=== PATIENT | male | born 1950 | race Caucasian/White ===

== ENCOUNTER 2020-08-09 14:27 | Emergency (ER) | payer OTHER, MEDICARE, MEDICAID, SELFPAY ==
[2020-08-09 14:29] VITALS: BP 153/76; PULSE 95; RESP 20; TEMP 36.6; O2SAT 98; BMI 34.2
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
[2020-08-09 16:29] VITALS: BP 165/90; PULSE 78; RESP 18; O2SAT 93
[2020-08-09 16:30] VITALS: BP 161/85; PULSE 79; RESP 18; O2SAT 94
[2020-08-09 17:35] VITALS: BP 137/87; PULSE 78; RESP 20; TEMP 36.6; O2SAT 98
== END 2020-08-09 17:36 | disposition home or self-care (01) ==
PROVIDERS: Emergency Provider Emergency Medicine; PCP Family Medicine
DX: S16.1XXA Strain of muscle, fascia and tendon at neck level, initial encounter (principal); S83.91XA Sprain of unspecified site of right knee, initial encounter; V43.52XA Car driver injured in collision with other type car in traffic accident, initial encounter; Y92.488 Other paved roadways as the place of occurrence of the external cause; F17.210 Nicotine dependence, cigarettes, uncomplicated
CPT/HCPCS: 70450; 71045; 72125; 73030; 73562; 99282

== ENCOUNTER 2022-11-28 15:41 | Emergency (ER) | payer MEDICARE, SELFPAY ==
[2022-11-28] VITALS (8 sets, daily range): BP systolic 120–162; BP diastolic 55–75; PULSE 69–78; RESP 16–18; TEMP 36.6; O2SAT 95–96; BMI 34.2
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
--- NOTE | 2022-11-28 15:48 | ECG_ITS ---
APPROVED REPORT Exam: Resting ECG HR:85 bpm ECG Measurements Heart Rate 85 AXES NH 178 P 132 QRSd 193 QRS -58 QT 431 T 98 QTc 473 Conclusion ELECTRONIC ATRIAL PACEMAKER ELECTRONIC VENTRICULAR PACEMAKER ABNORMAL RHYTHM ECG UNCONFIRMED REPORT Electronically signed by : Sandor Finley MD 11/29/2022 10:39:10
--- NOTE | 2022-11-28 15:50 | HMH.EDCP ---
Discharge Plan Disposition Patient Disposition: Home, Self-Care Condition: Fair Chief Complaint: Shortness of Breath/Dyspnea Prescriptions Prescriptions: No Action carvedilol 25 MG tablet 25 mg PO DIRECTED isosorbide mononitrate 30 MG tablet 30 mg PO DAILY clopidogrel 75 MG tablet 75 mg PO DAILY ropinirole 0.25 MG tablet 0.25 mg PO DIRECTED fluoxetine 10 MG capsule 10 mg PO DAILY ibuprofen 600 MG tablet 600 mg PO Q6HP PRN (Reason: Mild Pain) Qty: 30 0RF acetaminophen 500 MG capsule 500 mg PO Q6 Qty: 20 0RF methocarbamol 500 MG tablet 1,000 mg PO TID 10 Days Qty: 60 0RF oxycodone-acetaminophen [Percocet] 1 EACH Tablet 1 tab PO QID Referrals Follow up/Referrals: Gerald Perry [Primary Care Provider] - See instructions Activity Restrictions/Add. Instructions Additional Instructions/Restrictions: Follow-up with your primary care doctor in about 3 to 4 days even if you feel well. Return immediately to the emergency department if you feel worse in any way. Your work-up in the emergency department today did not reveal any life-threatening or dangerous conditions. There is no evidence of heart attack or pneumonia or fluid on your lungs. Clinical Impressions Clinical Impression: Breath shortness Instructions Patient Instructions: DI for Shortness of Breath Discharge ED Provider: Valeriy Garcia [facility] General Chief Complaint: Shortness of Breath/Dyspnea Stated Complaint: SOA Time Seen by Provider: 11/28/22 15:46 Description of Symptoms (Recalled from ER Triage Doc. by RN): The patient presents to the emergency department complaining of chest pain that has been constant since 8 PM last night. He says has been waxing and waning. He has had a pacemaker for 14 years. He also has congestive heart failure. He wears home oxygen at 2 L/min. He denies coughing, fever, nausea, vomiting, diarrhea. HBAVYA Score for Non-Stemi Age of Patient: 70-79 years old Heart Rate: 70-89 bpm Systolic Blood Pressure: 120-139 mmhg Serum Creatinine: 0.80-1.19 mg/dl CHF [place] Class: I-No CHF Other Risk Factors: None Non-Stemi Risk Score: 125 Related Data Home Medications Medication Instructions Recorded Confirmed oxycodone-acetaminophen 10 mg-325 1 tab PO QID back pain 11/09/17 03/06/19 mg tablet (Percocet) carvedilol 25 mg tablet 25 mg PO DIRECTED heart 03/06/19 03/06/19 clopidogrel 75 mg tablet 75 mg PO DAILY heart 03/06/19 03/06/19 fluoxetine 10 mg capsule 10 mg PO DAILY . 03/06/19 03/06/19 isosorbide mononitrate 30 mg 30 mg PO DAILY . 03/06/19 03/06/19 tablet,extended release 24 hr ropinirole 0.25 mg tablet 0.25 mg PO DIRECTED RLS 03/06/19 03/06/19 Previous Rx's Medication Instructions Recorded ibuprofen 600 mg tablet 600 mg PO Q6HP PRN Mild Pain #30 03/06/19 tabs acetaminophen 500 mg capsule 500 mg PO Q6 #20 caps 08/09/20 methocarbamol 500 mg tablet 1,000 mg PO TID 10 days #60 tabs 08/09/20 Allergies Allergy/AdvReac Type Severity Reaction Status Date / Time acetaminophen [From VICODIN] Allergy Unknown RASH AND Verified 02/06/19 19:39 ITCHING hydrocodone [From VICODIN] Allergy Unknown RASH AND Verified 02/06/19 19:39 ITCHING PFSH PFSH Disclaimer: The information contained in this section may have been updated after the patient was seen, as this information can be updated by other users. Social History Smoking Status: Never smoker alcohol intake: never current occupational status: retired Travel in the last 8 weeks: None ROS Obtained: Yes All systems reviewed & no additional complaints except as documented Physical Exam General General appearance: alert and in no apparent distress Head Head exam: atraumatic Eye Eye exam: Present normal appearance ENT ENT exam: Present normal exam Neck Neck exam: Present normal inspection and full ROM; Absent tenderness or meningismus Chest Chest inspection:
[2022-11-28 16:04] LABS: Basophils % 0.5 % (0.1-2.0); Eosinophils # 0.5 K/mm3 (0.0-0.4); Eosinophils % 5.6 % (0.1-12.0); Hematocrit 45.3 % (42.0-52.0); Hemoglobin 14.4 g/dL (14.1-18.0); Lymphocytes # 1.8 K/mm3 (0.7-4.5); Lymphocytes % 20.3 % (10-50); Mean Corpuscular HGB Conc 31.8 g/dL (31.8-35.4); Mean Corpuscular Hemoglobin 27.6 pg (27.0-31.2); Mean Corpuscular Volume 86.7 fl (80-94); Mean Platelet Volume 9.9 fl (7.4-10.4); Monocytes # 0.6 K/mm3 (0.1-1.0); Monocytes % 6.9 % (1.7-9.3); Neutrophils # 5.8 K/mm3 (1.8-7.8); Neutrophils % 66.7 % (37.0-80.0); Platelet Count 180 K/mm3 (142-424); Red Blood Count 5.22 M/mm3 (4.60-6.20); Red Cell Distribution Width 15.1 % (11.5-17.5); White Blood Count 8.7 K/mm3 (4.8-10.8)
[2022-11-28 16:10] LABS: Chloride 100 mmol/L (98-107); Sodium 142 mmol/L (136-145)
[2022-11-28 16:11] LABS: Potassium 4.6 mmoL/L (3.5-5.1)
[2022-11-28 16:13] LABS: Alanine Aminotransferase 35 U/L (12-78); Albumin Level 4.3 g/dl (3.5-5.0); Albumin/Globulin Ratio 1.4 (1.1-1.8); Alkaline Phosphatase 99 U/L (38-126); Anion Gap 14.6 mEq/L (5-15); Aspartate Amino Transferase 34 U/L (17-59); Bilirubin,Total 0.3 mg/dl (0.2-1.3); Blood Urea Nitrogen 22 mg/dl (9-20); Carbon Dioxide 32 mmol/L (22.0-30.0); Creatinine Clearance Estimated 96 mL/min (50-200); Estimated Glomerular Filt Rate 95 ml/min (>60); GFR (African American) 115 ML/MIN (>60); Globulin 3.1 g/dL (1.3-3.2); Total Protein,Serum 7.4 g/dl (6.3-8.2)
[2022-11-28 16:14] LABS: Calcium 9.4 mg/dl (8.4-10.2); Glucose 156 mg/dl (74-100)
[2022-11-28 16:23] LABS: NT Pro Brain Natriuretic Pep. 95.9 pg/mL (0-125)
[2022-11-28 16:26] LABS: Troponin I 0.02 ng/ml (0.00-0.034)
--- NOTE | 2022-11-28 17:43 | PC.NURSE ---
rounded on pt gave a zero sugar starry night soda, tap shields at bedside
--- NOTE | 2022-11-28 18:33 | PC.NURSE ---
checked on pt gave tv remote nothing else needed
--- NOTE | 2022-11-28 18:40 | PC.NURSE ---
jose rafael king at
== END 2022-11-28 19:06 | disposition home or self-care (01) ==
PROVIDERS: Emergency Provider Emergency Medicine; PCP Family Medicine
DX: R07.9 Chest pain, unspecified (principal); R06.02 Shortness of breath; I50.9 Heart failure, unspecified; Z95.0 Presence of cardiac pacemaker
CPT/HCPCS: 71045; 80053; 83880; 84484; 85025; 93005; 99285

== ENCOUNTER 2022-12-07 14:14 | Observation (INO) | payer MEDICARE, SELFPAY ==
[2022-12-07] VITALS (8 sets, daily range): BP systolic 108–152; BP diastolic 59–76; PULSE 70–103; RESP 18–20; TEMP 37.2–37.6; O2SAT 90–95; BMI 34.9; BMI 35.9
--- NOTE | 2022-12-07 14:36 | XR_ITS ---
PROCEDURE INFORMATION: Exam: XR Left Elbow Exam date and time: 12/07/2022 2:40 PM Age: 72 years old Clinical indication: Swelling; Elbow; Left; Additional info: Elbow pain, swelling TECHNIQUE: Imaging protocol: Radiologic exam of the left elbow. Views: 3 or more views. COMPARISON: CR ELBL3 ELBOW-LT-3 VIEWS 12/22/2016 10:28 PM FINDINGS: Bones/joints: No acute fracture or dislocation. Considerable hypertrophic osteophytes at the elbow joint. Chronic irregularity of the dorsal cortex of the proximal ulna. Soft tissues: Posterior elbow soft tissue swelling. Calcification seen in the approximate location of the triceps tendon. IMPRESSION: Posterior elbow soft tissue swelling.
--- NOTE | 2022-12-07 14:37 | HMH.EDGENADL ---
Discharge Plan Disposition Patient Disposition: Admitted Condition: Fair Prescriptions Prescriptions: No Action carvedilol 25 MG tablet 25 mg PO DIRECTED isosorbide mononitrate 30 MG tablet 30 mg PO DAILY clopidogrel 75 MG tablet 75 mg PO DAILY ropinirole 0.25 MG tablet 0.25 mg PO DIRECTED fluoxetine 10 MG capsule 10 mg PO DAILY ibuprofen 600 MG tablet 600 mg PO Q6HP PRN (Reason: Mild Pain) Qty: 30 0RF acetaminophen 500 MG capsule 500 mg PO Q6 Qty: 20 0RF methocarbamol 500 MG tablet 1,000 mg PO TID 10 Days Qty: 60 0RF oxycodone-acetaminophen [Percocet] 1 EACH Tablet 1 tab PO QID Referrals Follow up/Referrals: Gerald Perry [Primary Care Provider] - See instructions Clinical Impressions Clinical Impression: Lymphangitis of upper extremity, Pain and swelling of left elbow Discharge ED Provider: Sarah Patel Adult HPI General Chief complaint: Extremity Problem,Nontraumatic Stated complaint: left elbow, knot Time Seen by Provider: 12/07/22 14:16 Mode of Arrival: Ambulatory Source of Information: Patient Limitations: No Limitations Description of Symptoms (Recalled from ER Triage Doc. by RN): Presents to ED with complaints of left elbow pain that started this morning. Further reports reddness,swelling, heat that radiates up from elbow into inner arm. Denies fever [employer]. Also denies hx of gout. Hx. of surgery to left elbow unable to recall x4-5 years ago. History of Present Illness HPI narrative: 72-year-old male presenting to the emergency department with pain, swelling, redness of his left elbow. Symptoms started yesterday. Started with swelling and pain near his elbow. When he woke up this morning there was redness and warmth. Seems to be tracking up the inner portion of his arm. He denies any fevers, chills, nausea, vomiting. No numbness, weakness, tingling in his left hand. No medications prior to arrival. He had surgery on his elbow 4 to 5 years ago. Denies recent falls, trauma Related Data Home Medications Medication Instructions Recorded Confirmed oxycodone-acetaminophen 10 mg-325 1 tab PO QID back pain 11/09/17 03/06/19 mg tablet (Percocet) carvedilol 25 mg tablet 25 mg PO DIRECTED heart 03/06/19 03/06/19 clopidogrel 75 mg tablet 75 mg PO DAILY heart 03/06/19 03/06/19 fluoxetine 10 mg capsule 10 mg PO DAILY . 03/06/19 03/06/19 isosorbide mononitrate 30 mg 30 mg PO DAILY . 03/06/19 03/06/19 tablet,extended release 24 hr ropinirole 0.25 mg tablet 0.25 mg PO DIRECTED RLS 03/06/19 03/06/19 Previous Rx's Medication Instructions Recorded ibuprofen 600 mg tablet 600 mg PO Q6HP PRN Mild Pain #30 03/06/19 tabs acetaminophen 500 mg capsule 500 mg PO Q6 #20 caps 08/09/20 methocarbamol 500 mg tablet 1,000 mg PO TID 10 days #60 tabs 08/09/20 Allergies Allergy/AdvReac Type Severity Reaction Status Date / Time acetaminophen [From VICODIN] Allergy Unknown RASH AND Verified 02/06/19 19:39 ITCHING hydrocodone [From VICODIN] Allergy Unknown RASH AND Verified 02/06/19 19:39 ITCHING PFSH [facility] Disclaimer: The information contained in this section may have been updated after the patient was seen, as this information can be updated by other users. Social History Smoking Status: Current every day smoker tobacco type: cigarettes packs per day: 1 alcohol intake: never current occupational status: retired Travel in the last 8 weeks: None ROS Obtained: Yes All systems reviewed & no additional complaints except as documented Constitutional Constitutional: Denies chills, Denies fever(s) and Denies headache(s) ENT Ears, Nose, Mouth, and Throat: Denies dizziness and Denies headache(s) Cardiovascular Cardiovascular: Denies dyspnea Respiratory Respiratory: Denies cough and Denies dyspnea Gastrointestinal Gastrointestingal: Denies nausea or vomiting Musculoskeletal Musculoskeletal: Reports arthralgias (l
--- NOTE | 2022-12-07 14:50 | PC.NURSE ---
Rad XR @ [facility]
[2022-12-07 14:55] LABS: Basophils % 0.3 % (0.1-2.0); Eosinophils # 0.3 K/mm3 (0.0-0.4); Eosinophils % 2.5 % (0.1-12.0); Hematocrit 45.4 % (42.0-52.0); Hemoglobin 14.6 g/dL (14.1-18.0); Lymphocytes % 9.3 % (10-50); Mean Corpuscular HGB Conc 32.2 g/dL (31.8-35.4); Mean Corpuscular Hemoglobin 27.6 pg (27.0-31.2); Mean Corpuscular Volume 85.8 fl (80-94); Mean Platelet Volume 10.1 fl (7.4-10.4); Monocytes # 0.8 K/mm3 (0.1-1.0); Monocytes % 7.4 % (1.7-9.3); Neutrophils # 8.9 K/mm3 (1.8-7.8); Neutrophils % 80.5 % (37.0-80.0); Platelet Count 185 K/mm3 (142-424); Red Blood Count 5.29 M/mm3 (4.60-6.20); Red Cell Distribution Width 15.2 % (11.5-17.5)
[2022-12-07 14:58] LABS: Chloride 96 mmol/L (98-107); Potassium 3.8 mmoL/L (3.5-5.1); Sodium 136 mmol/L (136-145)
[2022-12-07 15:01] LABS: Blood Urea Nitrogen 16 mg/dl (9-20); Creatinine Clearance Estimated 99 mL/min (50-200); Estimated Glomerular Filt Rate 73 ml/min (>60); GFR (African American) 89 ML/MIN (>60)
[2022-12-07 15:02] LABS: Anion Gap 14.8 mEq/L (5-15); Calcium 8.8 mg/dl (8.4-10.2); Carbon Dioxide 29 mmol/L (22.0-30.0); Glucose 217 mg/dl (74-100)
[2022-12-07 15:07] LABS: C-Reactive Protein 146.8 mg/L (0-4)
[2022-12-07 15:25] LABS: Erythrocyte Sedimentation Rate 34 mm/hr (0-20)
--- NOTE | 2022-12-07 15:37 | PC.NURSE ---
Dr Jaun woodard
--- NOTE | 2022-12-07 15:38 | PC.NURSE ---
Dr Patel speaking with Dr Zamorano
--- NOTE | 2022-12-07 15:42 | PC.NURSE ---
ER spoke with hospitalist dr. pelaez-states dr. pelaez requested a ct prior to admission to r/o necrotizing fascitis. ER MD states placing CT order.
--- NOTE | 2022-12-07 15:42 | CT_ITS ---
PROCEDURE INFORMATION: Exam: CT Left Upper Extremity Without Contrast, Elbow Exam date and time: 12/07/2022 4:00 PM Age: 72 years old Clinical indication: Pain; Patient HX: Left elbow infection. Doctor attempted to drain elbow. ; Additional info: Elbow pain, swelling TECHNIQUE: Imaging protocol: Computed tomography of the left upper extremity without contrast. Exam focused on the elbow. 3D rendering (Not supervised by radiologist): MIP and/or 3D reconstructed images were created by the technologist. Radiation optimization: All CT scans at this facility use at least one of these dose optimization techniques: automated exposure control; mA and/or kV adjustment per patient size (includes targeted exams where dose is matched to clinical indication); or iterative reconstruction. REPORTING DATA: Count of CT and Cardiac NM exams in prior 12 months: This patient has received 0 known CTs and 0 known cardiac nuclear medicine studies in the 12 months prior to the current study. COMPARISON: CR XR ELBOW LT MIN 3V 12/07/2022 2:40 PM FINDINGS: Bones/joints: No acute fracture or dislocation. Large hypertrophic osteophytes are seen at the elbow joint. Soft tissues: Considerable soft tissue swelling posterior to the elbow joint. No obvious fluid collection. IMPRESSION: Posterior elbow soft tissue swelling. No obvious fluid collection. However this study is limited without the use of IV contrast.
--- NOTE | 2022-12-07 16:07 | PC.NURSE ---
Rounded on patient; updated on plan of care.
--- NOTE | 2022-12-07 16:07 | EXP.HP ---
History of Present Illness *Admission Date: 12/07/22 *Reason for visit:: Right elbow pain *History of present illness: Patient with past medical history of pacemaker, artificial valve replacement, diabetes, hypertension presents complaining of 2 days left elbow pain. Patient states pain began 2 days ago upon awakening. Describes pain as 10/10, sharp, focused in elbow, lasting seconds, worse with movement and touching of elbow, better when elbow left alone. Patient also complains of constant achiness in left elbow for 48 hours. States that elbow discomfort radiates to left shoulder. Denies fevers, chills, recent injuries, recent accidents. Patient unsure whether he is on anticoagulation at home. States he thinks he has a pig artificial heart valve. Also admits to previous left elbow surgery. Smokes 1 pack/day and requests nicotine patch during hospitalization. Patient states he is also unsure of home medications, and currently calling relatives to obtain home med list. [facility] Disclaimer: The information contained in this section may have been updated after the patient was seen, as this information can be updated by other users. Past medical history CAD with stents Lung cancer diagnosed 2 years ago without follow-up Hyperlipidemia Hypertension Kxa-rklfwzh-habqkieex diabetes on metformin Past surgical history Pacemaker implantation Artificial heart valve Left elbow surgery Past social history , 2 months ago Lives alone Smokes 1 pack/day Denies alcohol and illegal drugs Past family history Mother from aneurysm issues Father had hyperlipidemia and diabetes Social History Smoking Status: Current every day smoker tobacco type: cigarettes packs per day: 1 alcohol intake: never current occupational status: retired Travel in the last 8 weeks: None Review of Systems Review of Systems Review of systems:: pertinent systems reviewed and negative unless documented below Constitutional Constitutional: Denies headache(s) ENT Ears, Nose, Mouth, and Throat: Denies dizziness and Denies headache(s) *Neurologic Neurologic: Denies dizziness and Denies headache(s) Meds Home Medications and Allergies Home Medications Medication Instructions Recorded Confirmed Type oxycodone-acetaminophen 10 mg-325 1 tab PO QID back pain 11/09/17 03/06/19 History mg tablet (Percocet) carvedilol 25 mg tablet 25 mg PO DIRECTED heart 03/06/19 03/06/19 History clopidogrel 75 mg tablet 75 mg PO DAILY heart 03/06/19 03/06/19 History fluoxetine 10 mg capsule 10 mg PO DAILY . 03/06/19 03/06/19 History ibuprofen 600 mg tablet 600 mg PO Q6HP PRN Mild Pain #30 03/06/19 Rx tabs isosorbide mononitrate 30 mg 30 mg PO DAILY . 03/06/19 03/06/19 History tablet,extended release 24 hr ropinirole 0.25 mg tablet 0.25 mg PO DIRECTED RLS 03/06/19 03/06/19 History acetaminophen 500 mg capsule 500 mg PO Q6 #20 caps 08/09/20 Rx methocarbamol 500 mg tablet 1,000 mg PO TID 10 days #60 tabs 08/09/20 Rx New Prescriptions to Start Prescriptions: Allergies Allergy/AdvReac Type Severity Reaction Status Date / Time acetaminophen [From VICODIN] Allergy Unknown RASH AND Verified 02/06/19 19:39 ITCHING hydrocodone [From VICODIN] Allergy Unknown RASH AND Verified 02/06/19 19:39 ITCHING Exam Data for Last 24 hours Vital signs and Labs for Last 24 Hours: Temp Pulse Resp BP Pulse Ox 98.9 F 97 H 18 123/71 95 12/07/22 14:15 12/07/22 14:30 12/07/22 14:30 12/07/22 14:30 12/07/22 14:30 Laboratory Results - last 24 hr 12/07/22 14:47: WBC 11.0 H, RBC 5.29, Hgb 14.6, Hct 45.4, MCV 85.8, MCH 27.6, MCHC 32.2, RDW 15.2, Plt Count 185, MPV 10.1, Neut % (Auto) 80.5 H, Lymph % (Auto) 9.3 L, [place] % (Auto) 7.4, Eos % (Auto) 2.5, Baso % (Auto) 0.3, Neut # (Auto) 8.9 H, Lymph # (Auto) 1.0, [place] # (Auto) 0.8, Eos # (Auto) 0.3, Baso # (Auto) 0.0, ESR 34 H 12/07/22
[2022-12-07 16:11] LABS: Coronavirus 19, PCR Not Detected (NotDetected); Influenza A, PCR Not Detected (NotDetected); Influenza B, PCR Not Detected (NotDetected)
--- NOTE | 2022-12-07 16:16 | PC.NURSE ---
Dr Hope (hospitalist) at [facility]
--- NOTE | 2022-12-07 16:21 | PC.NURSE ---
[facility] notified of admission
--- NOTE | 2022-12-07 16:34 | CT_ITS ---
PROCEDURE INFORMATION: Exam: CT Chest With Contrast; Diagnostic Exam date and time: 12/07/2022 4:51 PM Age: 72 years old Clinical indication: Other: Previous lung cancer diagnosis; Additional info: Diagnosed with lung cancer 2 years ago w/o f/u TECHNIQUE: Imaging protocol: Diagnostic computed tomography of the chest with contrast. Radiation optimization: All CT scans at this facility use at least one of these dose optimization techniques: automated exposure control; mA and/or kV adjustment per patient size (includes targeted exams where dose is matched to clinical indication); or iterative reconstruction. Contrast material: ISOVUE; Contrast volume: 75 ml; Contrast route: IV; REPORTING DATA: Count of CT and Cardiac NM exams in prior 12 months: This patient has received 0 known CTs and 0 known cardiac nuclear medicine studies in the 12 months prior to the current study. COMPARISON: CR XR CHEST PORTABLE 11/28/2022 4:00 PM FINDINGS: Tubes, catheters and devices: Dual chamber transvenous pacemaker in place. Lungs: Unremarkable. No consolidation. No masses. Pleural spaces: Unremarkable. No pneumothorax. No pleural effusion. Heart: Aortic valve replacement. Coronary arteries: Moderate coronary artery calcification. Lymph nodes: Unremarkable. No enlarged lymph nodes. Vasculature: Mild atherosclerotic changes are seen within the thoracic aorta without evidence of aneurysm. Bones/joints: Unremarkable. No acute fracture. Soft tissues: 2.5 cm sebaceous cyst in the lower back, right of midline. IMPRESSION: No acute findings.
--- NOTE | 2022-12-07 16:52 | PC.NURSE ---
Report called to Amy WOMACK
[2022-12-07 17:06] LABS: INR 1.03 (0.9-1.1); Prothrombin Time 11.1 seconds (10.1-12.5)
[2022-12-07 17:20] LABS: PTT Heparin (inpatient only) 30.7 Seconds (23.6-34.0)
[2022-12-07 20:34] LABS: POC Glucose,Bedside 262 (70-110)
[2022-12-08 04:00] VITALS: BP 145/64; PULSE 80; RESP 18; TEMP 36.7; O2SAT 90; BMI 21.1
[2022-12-08 06:17] LABS: POC Glucose,Bedside 168 (70-110)
[2022-12-08 06:21] LABS: Basophils % 0.4 % (0.1-2.0); Eosinophils # 0.4 K/mm3 (0.0-0.4); Hematocrit 40.9 % (42.0-52.0); Hemoglobin 13.4 g/dL (14.1-18.0); Lymphocytes # 1.4 K/mm3 (0.7-4.5); Lymphocytes % 14.9 % (10-50); Mean Corpuscular HGB Conc 32.8 g/dL (31.8-35.4); Mean Corpuscular Hemoglobin 27.8 pg (27.0-31.2); Mean Corpuscular Volume 84.7 fl (80-94); Mean Platelet Volume 9.9 fl (7.4-10.4); Monocytes # 0.8 K/mm3 (0.1-1.0); Monocytes % 9.1 % (1.7-9.3); Neutrophils # 6.6 K/mm3 (1.8-7.8); Neutrophils % 71.6 % (37.0-80.0); Platelet Count 142 K/mm3 (142-424); Red Blood Count 4.83 M/mm3 (4.60-6.20); Red Cell Distribution Width 15.3 % (11.5-17.5); White Blood Count 9.2 K/mm3 (4.8-10.8)
--- NOTE | 2022-12-08 06:23 | PC.NURSE ---
Patient rested most of the night. Patient did complain of restless leg so patient is refusing SCUDs at the moment. RN reached out to RN SURGICAL and restarted a home medication see AUG. No other complains were stated. Patient has been NPO since midnight for ortho consult
[2022-12-08 06:25] LABS: Chloride 100 mmol/L (98-107); Sodium 139 mmol/L (136-145)
[2022-12-08 06:26] LABS: Potassium 4.1 mmoL/L (3.5-5.1)
[2022-12-08 06:29] LABS: Anion Gap 14.1 mEq/L (5-15); Blood Urea Nitrogen 16 mg/dl (9-20); Calcium 8.3 mg/dl (8.4-10.2); Carbon Dioxide 29 mmol/L (22.0-30.0); Creatinine Clearance Estimated 60 mL/min (50-200); Estimated Glomerular Filt Rate 95 ml/min (>60); GFR (African American) 115 ML/MIN (>60); Glucose 168 mg/dl (74-100); Lactic Acid 0.7 mmol/L (0.7-2.1)
[2022-12-08 06:31] LABS: INR 1.04 (0.9-1.1); Prothrombin Time 11.2 seconds (10.1-12.5)
[2022-12-08 06:34] LABS: C-Reactive Protein 166.6 mg/L (0-4)
[2022-12-08 06:57] LABS: PTT Heparin (inpatient only) 30.2 Seconds (23.6-34.0)
--- NOTE | 2022-12-08 07:38 | EXP.PHA.CONS ---
Pharmacy Consult Date: 12/08/22 Time: 07:38 Referring provider: DR. GONZÁLES Reason for Consult:: VANCOMYCIN DOSING FOR CELLULITIS Allergies Allergy/AdvReac Type Severity Reaction Status Date / Time hydrocodone [From VICODIN] Allergy Unknown RASH AND Verified 02/06/19 19:39 ITCHING Home Medications Medication Instructions Recorded Confirmed Type oxycodone-acetaminophen 10 mg-325 1 tab PO QID back pain 11/09/17 12/07/22 History mg tablet (Percocet) carvedilol 25 mg tablet 25 mg PO DAILY heart 03/06/19 12/07/22 History clopidogrel 75 mg tablet 75 mg PO DAILY heart 03/06/19 12/07/22 History fluoxetine 10 mg capsule 10 mg PO DAILY Anxiety 03/06/19 12/07/22 History ibuprofen 600 mg tablet 600 mg PO Q6HP PRN Mild Pain #30 03/06/19 12/07/22 Rx tabs isosorbide mononitrate 30 mg 30 mg PO DAILY hypertension 03/06/19 12/07/22 History tablet,extended release 24 hr ropinirole 0.25 mg tablet 0.25 mg PO HS RLS 03/06/19 12/07/22 History acetaminophen 500 mg capsule 500 mg PO Q6 Pain 12/07/22 12/07/22 History albuterol sulfate 90 mcg/actuation 90 mcg inhalation NEEDED PRN 12/07/22 12/07/22 History aerosol inhaler Asthma amitriptyline 25 mg tablet 25 mg PO DAILY Anxiety 12/07/22 12/07/22 History amlodipine 5 mg tablet 5 mg PO DAILY Hypertension 12/07/22 12/07/22 History diclofenac sodium 1 % topical gel 4 g topical QID pain 12/07/22 12/07/22 History hydrochlorothiazide 25 mg tablet 25 mg PO DAILY Heart failure 12/07/22 12/07/22 History lisinopril 40 mg tablet 40 mg PO DAILY Hypertension 12/07/22 12/07/22 History metformin 500 mg tablet,extended 2,000 mg PO DAILY daily 12/07/22 12/07/22 History release 24 hr methocarbamol 500 mg tablet 1,000 mg PO BID Restless leg 12/07/22 12/07/22 History mirtazapine 15 mg tablet 15 mg PO HS Anxiety 12/07/22 12/07/22 History nebulizer accessories 12/07/22 12/07/22 History pantoprazole 40 mg tablet,delayed 40 mg PO DAILY Acid reflux 12/07/22 12/07/22 History release pramipexole 1 mg tablet 4 mg PO HS Restless leg 12/07/22 12/07/22 History rosuvastatin 40 mg tablet 40 mg PO DAILY Cholesterol 12/07/22 12/07/22 History tamsulosin 0.4 mg capsule 0.4 mg PO DAILY Supplement 12/07/22 12/07/22 History tiotropium bromide 2.5 2.5 mcg inhalation DAILY COPD 12/07/22 12/07/22 History mcg/actuation mist for inhalation (Spiriva Respimat) New Prescriptions to Start Prescriptions: Height: 1.73 m Weight: 63.163 kg Laboratory Results:: Laboratory Results - last 24 hr 12/07/22 14:47: WBC 11.0 H, RBC 5.29, Hgb 14.6, Hct 45.4, MCV 85.8, MCH 27.6, MCHC 32.2, RDW 15.2, Plt Count 185, MPV 10.1, Neut % (Auto) 80.5 H, Lymph % (Auto) 9.3 L, [place] % (Auto) 7.4, Eos % (Auto) 2.5, Baso % (Auto) 0.3, Neut # (Auto) 8.9 H, Lymph # (Auto) 1.0, [place] # (Auto) 0.8, Eos # (Auto) 0.3, Baso # (Auto) 0.0, ESR 34 H 12/07/22 14:47: Sodium 136, Potassium 3.8, Chloride 96 L, Carbon Dioxide 29, Anion Gap 14.8, BUN 16, Creatinine 1.00, Estimated Creat Clear 99, Estimated GFR 73, Est GFR ( Amer) 89, Glucose 217 H, Calcium 8.8, C-Reactive Protein 146.8 H 12/07/22 14:47: PT 11.1, INR 1.03 12/07/22 14:47: APTT 30.7 12/07/22 15:44: SARS-CoV-2 (PCR) Not detected, Influenza A Untype (PCR) Not detected, Influenza Type B (PCR) Not detected 12/07/22 20:14: POC Glucose 262 H 12/08/22 05:49: POC Glucose 168 H 12/08/22 06:10: WBC 9.2, RBC 4.83, Hgb 13.4 L, Hct 40.9 L, MCV 84.7, MCH 27.8, MCHC 32.8, RDW 15.3, Plt Count 142, MPV 9.9, Neut % (Auto) 71.6, Lymph % (Auto) 14.9, [place] % (Auto) 9.1, Eos % (Auto) 4.0, Baso % (Auto) 0.4, Neut # (Auto) 6.6, Lymph # (Auto) 1.4, [place] # (Auto) 0.8, Eos # (Auto) 0.4, Baso # (Auto) 0.0 12/08/22 06:10: PT 11.2, INR 1.04 12/08/22 06:10: Sodium 139, Potassium 4.1, Chloride 100, Carbon Dioxide 29, Anion Gap 14.1, BUN 16, Creatinine 0.80, Estimated Creat Clear 60, Estimated GFR 95, Est GFR ( Amer) 115 D, Glucose 168 H D, Calcium 8.3 L, Magnesium 2.0, C-Reactive Protein 166.6 H 12/08/22 06:10: Lactate 0.
[2022-12-08 07:52] LABS: Erythrocyte Sedimentation Rate 30 mm/hr (0-20)
[2022-12-08 08:00] VITALS: BP 120/49; PULSE 70; RESP 18; TEMP 36.8; O2SAT 92
--- NOTE | 2022-12-08 08:01 | HMH.PHAINT1 ---
Pharmacy Intervention Comments: MEDICATION RECONCILIATION COMPLETED ON PATIENT USING EXTERNAL FILL HISTORY FROM PHARMACY. -JIN OZUNA, SNEHAD
--- NOTE | 2022-12-08 09:45 | EXP.ORTH.CON ---
History of Present Illness *Admission Date: 12/07/22 *History of present illness: Patient with past medical history of pacemaker, artificial valve replacement, diabetes, hypertension presents complaining of 2 days left elbow pain. Patient states pain began 2 days ago upon awakening. Describes pain as 10/10, sharp, focused in elbow, lasting seconds, worse with movement and touching of elbow, better when elbow left alone. Patient also complains of constant achiness in left elbow for 48 hours. States that elbow discomfort radiates to left shoulder. Denies fevers, chills, recent injuries, recent accidents. Patient unsure whether he is on anticoagulation at home. States he thinks he has a pig artificial heart valve. Also admits to previous left elbow surgery. Smokes 1 pack/day and requests nicotine patch during hospitalization. Patient states he is also unsure of home medications, and currently calling relatives to obtain home med list. Orthopedic consulted from the emergency department in regards to recommendations and treatment options with left elbow [facility] Disclaimer: The information contained in this section may have been updated after the patient was seen, as this information can be updated by other users. Medical History (Updated 12/08/22 @ 09:48 by John Zamorano DO) Atrial fibrillation Congestive heart failure COPD (chronic obstructive pulmonary disease) Hypertension Social History (Updated 12/07/22 @ 18:52 by Carolina Forte RN) Smoking Status: Current every day smoker tobacco type: cigarettes packs per day: 1 alcohol intake: never current occupational status: retired Travel in the last 8 weeks: None Review of Systems Constitutional Constitutional: Denies headache(s) ENT Ears, Nose, Mouth, and Throat: Denies dizziness and Denies headache(s) *Neurologic Neurologic: Denies dizziness and Denies headache(s) Meds Home Medications and Allergies Home Medications Medication Instructions Recorded Confirmed Type oxycodone-acetaminophen 10 mg-325 1 tab PO TIDP PRN Moderate Pain 11/09/17 12/08/22 History mg tablet (Percocet) (Scale Score 5-6) carvedilol 25 mg tablet 25 mg PO BID Hypertension 03/06/19 12/08/22 History clopidogrel 75 mg tablet 75 mg PO DAILY PLATELET INHIBITOR 03/06/19 12/07/22 History fluoxetine 10 mg capsule 10 mg PO DAILY MOOD 03/06/19 12/07/22 History ibuprofen 600 mg tablet 600 mg PO Q6HP PRN Mild Pain #30 03/06/19 12/07/22 Rx tabs isosorbide mononitrate 30 mg 30 mg PO DAILY hypertension 03/06/19 12/07/22 History tablet,extended release 24 hr acetaminophen 500 mg capsule 500 mg PO Q6HP PRN Mild Pain 12/07/22 12/08/22 History (Scale Score 1-4) albuterol sulfate 90 mcg/actuation 2 puff inhalation Q4HP PRN 12/07/22 12/08/22 History aerosol inhaler Shortness Of Breath amitriptyline 25 mg tablet 25 mg PO DAILY MOOD 12/07/22 12/07/22 History amlodipine 5 mg tablet 5 mg PO DAILY Hypertension 12/07/22 12/07/22 History diclofenac sodium 1 % topical gel 1 ea topical QID pain 12/07/22 12/08/22 History hydrochlorothiazide 25 mg tablet 25 mg PO DAILY Fluid 12/07/22 12/07/22 History lisinopril 40 mg tablet 40 mg PO DAILY Hypertension 12/07/22 12/07/22 History metformin 500 mg tablet,extended 2,000 mg PO DAILY Diabetes 12/07/22 12/07/22 History release 24 hr methocarbamol 500 mg tablet 1,000 mg PO BID Restless leg 12/07/22 12/07/22 History mirtazapine 15 mg tablet 15 mg PO HS Anxiety 12/07/22 12/07/22 History nebulizer accessories 12/07/22 12/07/22 History pantoprazole 40 mg tablet,delayed 40 mg PO DAILY Acid reflux 12/07/22 12/07/22 History release pramipexole 1 mg tablet 1 mg PO HS Restless leg 12/07/22 12/08/22 History rosuvastatin 40 mg tablet 40 mg PO HS Cholesterol 12/07/22 12/08/22 History tamsulosin 0.4 mg capsule 0.4 mg PO DAILY PROSTATE 12/07/22 12/07/22 History tiotropium bromide 2.5 2.5 mcg inhalation DAILY COPD 12/07/22 12/07/22 History mcg/actuation mist for inhalation
--- NOTE | 2022-12-08 11:29 | PC.NURSE ---
COURTESY ROUND PATIENT AWAKE LAYING BED . PATIENT HAS NO REQUEST OR NEEDS AT THIS TIME. TRASH AND LINENS EMPTIED . PATIENT REFUSED ICE WATER AT THIS TIME. CALL LIGHT WITHIN REACH .
[2022-12-08 12:23] LABS: POC Glucose,Bedside 270 (70-110)
[2022-12-08 16:00] VITALS: BP 142/80; PULSE 72; RESP 22; TEMP 36.8; O2SAT 93
--- NOTE | 2022-12-08 16:10 | EXP.PN ---
Subjective *Date: 12/08/22 *Time: 16:16 Interval history: Patient states left elbow pain slightly decreased versus yesterday's examination by Dr. Hope. Denies breathing issues. Informed by Dr. Hope the CT chest done during hospitalization showed no masses, lymphadenopathy, or other signs of lung cancer. Exam Data for Last 24 hours Vital signs and Labs for Last 24 Hours: Temp Pulse Resp BP Pulse Ox 98.2 F 70 18 120/49 L 92 L 12/08/22 08:00 12/08/22 08:00 12/08/22 08:00 12/08/22 08:00 12/08/22 08:00 Laboratory Results - last 24 hr 12/07/22 14:47: PT 11.1, INR 1.03 12/07/22 14:47: APTT 30.7 12/07/22 15:44: SARS-CoV-2 (PCR) Not detected, Influenza A Untype (PCR) Not detected, Influenza Type B (PCR) Not detected 12/07/22 20:14: POC Glucose 262 H 12/08/22 05:49: POC Glucose 168 H 12/08/22 06:10: WBC 9.2, RBC 4.83, Hgb 13.4 L, Hct 40.9 L, MCV 84.7, MCH 27.8, MCHC 32.8, RDW 15.3, Plt Count 142, MPV 9.9, Neut % (Auto) 71.6, Lymph % (Auto) 14.9, [place] % (Auto) 9.1, Eos % (Auto) 4.0, Baso % (Auto) 0.4, Neut # (Auto) 6.6, Lymph # (Auto) 1.4, [place] # (Auto) 0.8, Eos # (Auto) 0.4, Baso # (Auto) 0.0 12/08/22 06:10: PT 11.2, INR 1.04 12/08/22 06:10: Sodium 139, Potassium 4.1, Chloride 100, Carbon Dioxide 29, Anion Gap 14.1, BUN 16, Creatinine 0.80, Estimated Creat Clear 60, Estimated GFR 95, Est GFR ( Amer) 115 D, Glucose 168 H D, Calcium 8.3 L, Magnesium 2.0, C-Reactive Protein 166.6 H 12/08/22 06:10: Lactate 0.7 12/08/22 06:10: ESR 30 H 12/08/22 06:10: APTT 30.2 12/08/22 11:11: POC Glucose 270 H I & O for Last 24 hours: Intake & Output 12/05/22 12/06/22 12/07/22 12/08/22 23:59 23:59 23:59 23:59 Intake Total 240 / 240 2654 / 2654 Output Total 0 / 0 200 / 200 Balance 240 / 240 2454 / 2454 Weight 107.246 kg 63.163 kg *Routine HEENT Exam Head: Present normocephalic Eye: Present EOMI ENT: Present mucous membranes moist *Routine Neck Exam Neck: Present supple and full ROM *Routine Respiratory Exam Respiratory: Present decreased breath sounds and prolonged expiratory phase *Routine Cardiovascular Exam Cardiovascular: Present RRR, Normal S1 and Normal S2 *Routine Abdominal Exam Abdominal: Present soft and normoactive bowel sounds *Routine Rectal Exam Comments: deferred *Routine Exam Comments: deferred *Routine Extremities Exam Extremities: Present full ROM and normal capillary refill *Routine Skin Exam Skin: Present intact and warm *Routine Neurological Exam Neurological: Present alert and oriented X3 Comments: Decreased left elbow/forearm erythema, redness, swelling versus yesterday's examination Assessment and Plan *Assessment and plan (1) Cellulitis of left upper extremity: Status: Acute Category: Medical Code(s): L03.114 - Cellulitis of left upper limb (2) Hypertension: Status: Acute Category: Medical Code(s): I10 - Essential (primary) hypertension (3) Diabetes: Status: Acute Category: Medical Code(s): E11.9 - Type 2 diabetes mellitus without complications (4) Hyperlipidemia: Status: Acute Category: Medical Code(s): E78.5 - Hyperlipidemia, unspecified (5) Heart valve replaced: Status: Acute Category: Surgical Code(s): Z95.2 - Presence of prosthetic heart valve (6) COPD (chronic obstructive pulmonary disease): Status: Acute Category: Medical Code(s): J44.9 - Chronic obstructive pulmonary disease, unspecified Plan ?left elbow cellulitis: ? Consult with orthopedic surgery (Jaun STEVENS), IV Unasyn/vancomycin, consult pharmacy for vancomycin dosing, downgrade antibiotics as culture sensitivity available.? Blood cultures done at time of admission.? Follow white blood count and temperature curve closely during hospitalization.? Also follow ESR/CRP trends. ? 12/07/[address] rule showed no signs of necrotizing fasciitis/abscess/subcutaneous air. Hypertension: Continue h
--- NOTE | 2022-12-08 18:54 | PC.NURSE ---
pt a&o. per techs, pt remains incont of bladder. pt couldn't find his urinal so he walked to the hallway door and urinated in the floor. urine color and odor has got better t/o shift. pt has not c/o n/v/p/d. pod trimmed pts toenails, right big toe nail was bleeding. pt remained in bed all day. no concerns or complaints voiced from pt. cb within reach.
[2022-12-08 19:13] LABS: POC Glucose,Bedside 190 (70-110)
[2022-12-08 19:50] VITALS: BP 167/78; PULSE 75; RESP 22; TEMP 36.9; O2SAT 93
[2022-12-08 20:36] LABS: POC Glucose,Bedside 204 (70-110)
--- NOTE | 2022-12-08 21:14 | PC.NURSE ---
courtesy note: took pt to [employer] machine for bedtime snack.
[2022-12-09 04:00] VITALS: BP 143/71; PULSE 66; RESP 24; TEMP 36.8; O2SAT 92; BMI 37.2
[2022-12-09 06:01] LABS: POC Glucose,Bedside 211 (70-110)
[2022-12-09 06:19] LABS: Basophils % 0.4 % (0.1-2.0); Eosinophils # 0.5 K/mm3 (0.0-0.4); Eosinophils % 6.7 % (0.1-12.0); Hematocrit 39.7 % (42.0-52.0); Hemoglobin 12.7 g/dL (14.1-18.0); Lymphocytes # 1.3 K/mm3 (0.7-4.5); Lymphocytes % 19.1 % (10-50); Mean Corpuscular Hemoglobin 27.7 pg (27.0-31.2); Mean Corpuscular Volume 86.7 fl (80-94); Mean Platelet Volume 9.5 fl (7.4-10.4); Monocytes # 0.6 K/mm3 (0.1-1.0); Monocytes % 9.1 % (1.7-9.3); Neutrophils # 4.4 K/mm3 (1.8-7.8); Neutrophils % 64.7 % (37.0-80.0); Platelet Count 142 K/mm3 (142-424); Red Blood Count 4.57 M/mm3 (4.60-6.20); White Blood Count 6.8 K/mm3 (4.8-10.8)
[2022-12-09 06:21] LABS: Chloride 102 mmol/L (98-107); Potassium 4.3 mmoL/L (3.5-5.1); Sodium 139 mmol/L (136-145)
[2022-12-09 06:24] LABS: Anion Gap 11.3 mEq/L (5-15); Blood Urea Nitrogen 11 mg/dl (9-20); Calcium 8.1 mg/dl (8.4-10.2); Carbon Dioxide 30 mmol/L (22.0-30.0); Creatinine Clearance Estimated 105 mL/min (50-200); Estimated Glomerular Filt Rate 111 ml/min (>60); GFR (African American) 134 ML/MIN (>60); Glucose 207 mg/dl (74-100); Magnesium 2.1 mg/dl (1.6-2.3)
[2022-12-09 06:35] LABS: C-Reactive Protein 109.9 mg/L (0-4)
[2022-12-09 06:56] LABS: Erythrocyte Sedimentation Rate 67 mm/hr (0-20)
[2022-12-09 08:00] VITALS: BP 171/88; PULSE 76; RESP 20; TEMP 36.9; O2SAT 92
--- NOTE | 2022-12-09 09:38 | EXP.DC.SUM ---
General Admission date:: 12/07/22 Discharge date: 12/09/22 HPI HPI HPI: Patient with past medical history of pacemaker, artificial valve replacement, diabetes, hypertension presents complaining of 2 days left elbow pain. Patient states pain began 2 days ago upon awakening. Describes pain as 10/10, sharp, focused in elbow, lasting seconds, worse with movement and touching of elbow, better when elbow left alone. Patient also complains of constant achiness in left elbow for 48 hours. States that elbow discomfort radiates to left shoulder. Denies fevers, chills, recent injuries, recent accidents. Patient unsure whether he is on anticoagulation at home. States he thinks he has a pig artificial heart valve. Also admits to previous left elbow surgery. Smokes 1 pack/day and requests nicotine patch during hospitalization. Patient states he is also unsure of home medications, and currently calling relatives to obtain home med list. Orthopedic consulted from the emergency department in regards to recommendations and treatment options with left elbow Hospital Course Hospital Course Hospital Course: Patient admitted for left elbow pain, and diagnosed with left elbow cellulitis. Patient placed on IV vancomycin/Unasyn and rapidly improved over 2-day interval. Patient's white blood count trended downward, and patient afebrile throughout hospitalization. Admission CT left elbow showed abscess, gas formation, or necrotizing tissue. Patient admitted to being diagnosed with lung cancer 2 years ago, however admission CT chest with IV contrast showed no masses, lymphadenopathy, or other signs of cancer. After noting rapid clinical improvement, patient subsequently discharged home on outpatient treatment course of p.o. Augmentin/doxycycline. Patient also instructed to follow-up with PCP within 1 week of hospital discharge. Patient also advised to follow-up with pulmonary for COPD management as outpatient. Exam Data for Last 24 hours Vital signs and Labs for Last 24 Hours: Temp Pulse Resp BP Pulse Ox 98.5 F 76 20 171/88 H 92 L 12/09/22 08:00 12/09/22 08:00 12/09/22 08:00 12/09/22 08:00 12/09/22 08:00 Laboratory Results - last 24 hr 12/08/22 11:11: POC Glucose 270 H 12/08/22 16:11: POC Glucose 190 H 12/08/22 20:18: POC Glucose 204 H 12/09/22 05:54: POC Glucose 211 H 12/09/22 05:55: WBC 6.8 D, RBC 4.57 L, Hgb 12.7 L, Hct 39.7 L, MCV 86.7, MCH 27.7, MCHC 32.0, RDW 15.0, Plt Count 142, MPV 9.5, Neut % (Auto) 64.7, Lymph % (Auto) 19.1, [place] % (Auto) 9.1, Eos % (Auto) 6.7, Baso % (Auto) 0.4, Neut # (Auto) 4.4, Lymph # (Auto) 1.3, [place] # (Auto) 0.6, Eos # (Auto) 0.5 H, Baso # (Auto) 0.0 12/09/22 05:55: Sodium 139, Potassium 4.3, Chloride 102, Carbon Dioxide 30, Anion Gap 11.3, BUN 11 D, Creatinine 0.70, Estimated Creat Clear 105, Estimated GFR 111, Est GFR ( Amer) 134, Glucose 207 H D, Calcium 8.1 L, Magnesium 2.1, C-Reactive Protein 109.9 H 12/09/22 05:55: ESR 67 H I & O for Last 24 hours: Intake & Output 12/06/22 12/07/22 12/08/22 12/09/22 23:59 23:59 23:59 23:59 Intake Total 240 / 240 5104 / 5104 360 / 360 Output Total 0 / 0 200 / 200 600 / 600 Balance 240 / 240 4904 / 4904 -240 / -240 Weight 107.246 kg 63.163 kg 111.402 kg *Routine HEENT Exam Head: Present normocephalic Eye: Present EOMI and normal accommodation ENT: Present mucous membranes moist *Routine Neck Exam Neck: Present supple and full ROM *Routine Respiratory Exam Respiratory: Present prolonged expiratory phase and diminished air movement; Absent accessory muscle use *Routine Cardiovascular Exam Cardiovascular: Present RRR, Normal S1 and Normal S2 *Routine Abdominal Exam Abdominal: Present soft and normoactive bowel sounds; Absent rebound or guarding *Routine Rectal Exam Comments: deferred *Routine Exam Comments: deferred *Routine Extremities Exam Extremities: Present full ROM Comments: Left elbow erythema/swelling markedly decreased
--- NOTE | 2022-12-09 10:56 | P.CONPHA_ITS ---
Pharmacy Intervention Comments: MEDICATION BLOWER FEEDER DYED RAW STOCK DISCHARGE COMPLETED ON: -
--- NOTE | 2022-12-09 10:56 | HMH.PHAINT1 ---
Pharmacy Intervention Comments: MEDICATION MANAGER REPORT DISCHARGE COMPLETED ON: -
--- NOTE | 2022-12-09 10:57 | HMH.PHAINT1 ---
Pharmacy Intervention Comments: MEDICATION FINANCIAL ASSISTANCE SPECIALIST DISCHARGE ON FOLLOWING MEDICATIONS: -AUGMENTIN - DOXYCYCLINE PATIENT HAD NO FURTHER MEDICATION QUESTIONS AT THIS TIME. -NINOSKA YA, PHARM STUDENT
--- NOTE | 2022-12-11 13:04 | CARE MANAGER ---
Attempted to contact patient x2 related to hospital discharge. Left VM message. VU Sarabia
== END 2022-12-09 10:12 | disposition home or self-care (01) ==
LOC: ER 15:45 → 2ND 17:01
PROVIDERS: Admitting Provider Internal Medicine; Emergency Provider Emergency Medicine; PCP Family Medicine; Visit Provider Internal Medicine
DX: M25.422 Effusion, left elbow (principal); E11.9 Type 2 diabetes mellitus without complications; E78.5 Hyperlipidemia, unspecified; F17.210 Nicotine dependence, cigarettes, uncomplicated; Z79.02 Long term (current) use of antithrombotics/antiplatelets; Z95.2 Presence of prosthetic heart valve; J44.9 Chronic obstructive pulmonary disease, unspecified; Z79.84 Long term (current) use of oral hypoglycemic drugs; Z79.899 Other long term (current) drug therapy; I50.9 Heart failure, unspecified; Z95.0 Presence of cardiac pacemaker; I25.10 Atherosclerotic heart disease of native coronary artery without angina pectoris; M71.122 Other infective bursitis, left elbow; L03.114 Cellulitis of left upper limb; C34.90 Malignant neoplasm of unspecified part of unspecified bronchus or lung; I11.0 Hypertensive heart disease with heart failure
CPT/HCPCS: 20605; G0378; 36415; 71260; 73080; 73200; 80048; 82962; 83605; 83735; 85025; 85610; 85651; 85730; 86140; 87040; 87635; 87636; 99285; C9803; J0696; J3370; Q9967; U0003; U0005